=== PATIENT | male | born 1955 | race African-American/Black ===

== ENCOUNTER 2018-12-10 15:05 | Emergency (ER) | payer OTHER ==
[~2018-12-10] VITALS: Ht 180.3 cm; Wt 77.0 kg
[2018-12-10 18:49] LABS: BASOPHILS % 0.5 % (0.0-2.0); EOSINOPHILS % 0.5 % (0.0-5.0); HEMATOCRIT. 48.5 % (42.0-52.0); HEMOGLOBIN. 16.1 g/dL (14.0-18.0); LYMPHOCYTES % 9.8 % (20.0-50.0); MEAN CORPUSCULAR HEMOGLOBIN 32.6 pg (28.0-32.0); MEAN CORPUSCULAR VOLUME 98.5 fL (80.0-94.0); MEAN PLATELET VOLUME 8.6 fl (7.4-10.4); MONOCYTES % 6.3 % (2.0-8.0); NEUTROPHILS % 82.9 % (40.0-76.0); PLATELET 142 x1000/uL (130-400); RED BLOOD CELL COUNT 4.92 mill/uL (4.7-6.1); RED CELL DISTRIBUTION WIDTH 12.5 % (11.6-14.6)
[2018-12-10 18:51] LABS: CHLORIDE 103 mEq/L (98-107)
[2018-12-10 18:53] LABS: PROTHROMBIN TIME 10.3 sec (9.1-11.1)
[2018-12-10] MEDS ORDERED: SODIUM CHLORIDE 0.9% 1,000 ML IV ONE (19:07)
[2018-12-10] MEDS ORDERED: MORPHINE SULFATE 4 MG/ML CPJ (NOT FOR IM USE) IV PRN (23:15)
[2018-12-10] MEDS ORDERED: HYDRALAZINE 20MG/ML VIAL IV PRN (23:15)
[2018-12-10] MEDS ORDERED: IPRATROPIUM/ALBUTEROL 0.5-3(2.5)MG/3ML NEB INH PRN (23:15)
[2018-12-10] MEDS ORDERED: LORAZEPAM 2MG/ML CPJ IV PRN (23:15)
[2018-12-10] MEDS ORDERED: ONDANSETRON HCL 4MG/2ML INJ IV PRN (23:15)
[2018-12-11] MEDS ORDERED: SODIUM CHLORIDE 0.9% 1,000 ML IV SCH
[2018-12-11] MEDS ORDERED: ENOXAPARIN 40MG/0.4ML SYR SUBCUT SCH
[2018-12-11] MEDS: PANTOPRAZOLE SODIUM 40 MG/VIAL IV SCH ×2 (03:43→09:29)
[2018-12-11 04:33] LABS: BASOPHILS % 0.2 % (0.0-2.0); EOSINOPHILS % 0.1 % (0.0-5.0); HEMATOCRIT. 44.8 % (42.0-52.0); HEMOGLOBIN. 14.9 g/dL (14.0-18.0); LYMPHOCYTES % 9.5 % (20.0-50.0); MEAN CORPUSCULAR HEMOGLOBIN 32.5 pg (28.0-32.0); MEAN CORPUSCULAR VOLUME 97.6 fL (80.0-94.0); MEAN PLATELET VOLUME 8.4 fl (7.4-10.4); MONOCYTES % 6.4 % (2.0-8.0); NEUTROPHILS % 83.8 % (40.0-76.0); PLATELET 137 x1000/uL (130-400); RED BLOOD CELL COUNT 4.59 mill/uL (4.7-6.1); RED CELL DISTRIBUTION WIDTH 12.6 % (11.6-14.6)
[2018-12-11 04:39] LABS: CHLORIDE 107 mEq/L (98-107)
[2018-12-11 04:51] LABS: LDL CHOLESTEROL 51 mg/dL (5-100)
[2018-12-11 04:52] LABS: CREATINE KINASE 203 IU/L (39-308)
[2018-12-11 04:54] LABS: CREATINE KINASE MB FRACTION < 1.0 ng/mL (0.5-3.6); HDL CHOLESTEROL 61 mg/dL (40-59)
[2018-12-11] MEDS: ENALAPRIL 2.5MG/2ML VIAL 2ML IV SCH ×2 (07:50)
[2018-12-11 09:10] VITALS: BP 120/85
== END 2018-12-11 10:11 | disposition left against medical advice (07) ==
LOC: ER 15:05 → EDBEDREQ 19:17 → CANBEDREQ 12-11 10:02 → ER 12-11 10:11
DX: K85.90 Acute pancreatitis without necrosis or infection, unspecified (principal); J44.9 Chronic obstructive pulmonary disease, unspecified; I10 Essential (primary) hypertension; F17.200 Nicotine dependence, unspecified, uncomplicated; F11.20 Opioid dependence, uncomplicated; Z98.890 Other specified postprocedural states
CPT/HCPCS: 36415; 76700; 80053; 80061; 80320; 82140; 82550; 82553; 83690; 83735; 84443; 84484; 85025; 85610; 87040; 93970; 96361; 96372; 96374; 99284; C9113; J1650; J7030; G0480

== ENCOUNTER 2020-04-27 06:06 | Emergency (ER) | payer OTHER ==
[~2020-04-27] VITALS: Ht 190.5 cm; Wt 77.0 kg
[2020-04-27 06:09] VITALS: BP 130/89
[2020-04-27] MEDS ORDERED: LIDOCAINE HCL/PF 1% 10 MG/ML 5ML VIAL IJ ONE (06:45)
== END 2020-04-27 07:07 | disposition home or self-care (01) ==
LOC: ER 06:06
DX: L02.415 Cutaneous abscess of right lower limb (principal); I10 Essential (primary) hypertension
CPT/HCPCS: 10060; 99283; J3490

== ENCOUNTER 2022-08-09 04:39 | Emergency (ER) | payer MEDICAID, OTHER ==
[~2022-08-09] VITALS: Ht 190.5 cm; Wt 91.0 kg
[2022-08-09 04:42] VITALS: BP 182/90
[2022-08-09] MEDS ORDERED: ONDANSETRON HCL 4MG/2ML INJ IV STA (08:04)
[2022-08-09] MEDS ORDERED: SODIUM CHLORIDE 0.9% 1,000 ML IV ONE (08:15)
== END 2022-08-09 09:22 | disposition left against medical advice (07) ==
LOC: ER 04:53
DX: Z53.21 Procedure and treatment not carried out due to patient leaving prior to being seen by health care provider (principal)
CPT/HCPCS: J7030

== ENCOUNTER 2023-01-03 13:54 | Emergency (ER) | payer MEDICARE, MEDICAID ==
[~2023-01-03] VITALS: Ht 177.8 cm; Wt 64.0 kg
[2023-01-03] MEDS ORDERED: IBUPROFEN 600MG TABLET PO STA (14:16)
[2023-01-03 14:45] VITALS: BP 154/96
[2023-01-03] MEDS ORDERED: AMLO10TA4 MT (15:39)
[2023-01-03] MEDS ORDERED: IBUP-2029 MT (15:40)
== END 2023-01-03 16:21 | disposition home or self-care (01) ==
LOC: ER 13:54
DX: M79.605 Pain in left leg (principal); M79.604 Pain in right leg; I10 Essential (primary) hypertension; J45.909 Unspecified asthma, uncomplicated
CPT/HCPCS: 93970; 99284

== ENCOUNTER 2023-05-01 08:25 | Emergency (ER) | payer MEDICARE, MEDICAID ==
[~2023-05-01] VITALS: Ht 182.9 cm; Wt 82.0 kg
[~2023-05-01 08:25] MED LIST: AMLO10TA4 MT; IBUP-2029 MT
[2023-05-01 08:28] VITALS: BP 189/123; PULSE 98; RESP 18; TEMP 98.3; O2SAT 100
[2023-05-01 09:15] LABS: BASOPHILS % 0.7 % (0.0-2.0); EOSINOPHILS % 2.4 % (0.0-5.0); HEMATOCRIT. 42.6 % (42.0-52.0); HEMOGLOBIN. 14.1 g/dL (14.0-18.0); LYMPHOCYTES % 29.2 % (20.0-50.0); MEAN CORPUSCULAR HEMOGLOBIN 31.6 pg (28.0-32.0); MEAN CORPUSCULAR HGB CONC 33.2 g/dL (31.0-37.0); MEAN CORPUSCULAR VOLUME 95.2 fL (80.0-94.0); MEAN PLATELET VOLUME 8.1 fl (7.4-10.4); MONOCYTES % 9.4 % (2.0-8.0); NEUTROPHILS % 58.3 % (40.0-76.0); PLATELET 397 x1000/uL (130-400); RED BLOOD CELL COUNT 4.47 mill/uL (4.7-6.1); RED CELL DISTRIBUTION WIDTH 14.5 % (11.6-14.6); WHITE BLOOD COUNT 11.2 x1000/uL (4.5-11.0)
[2023-05-01 09:26] LABS: CALCIUM 9.5 mg/dL (8.5-10.1); CHLORIDE 106 mEq/L (98-107); INDEX HEMOLYSI 1 (1-3); INDEX ICTERIC 1 (1-4); INDEX LIPEMIC 1 (1-3); POTASSIUM 3.8 mEq/L (3.5-5.1); SODIUM 140 mEq/L (136-145); UREA NITROGEN BLOOD 15 mg/dL (7-21)
[2023-05-01 09:35] LABS: ALANINE AMINOTRANSFERASE 29 IU/L (13-61); ASPARTATE AMINOTRANSFERASE 34 IU/L (15-37); BILIRUBIN TOTAL 0.7 mg/dL (0.1-1.0); CARBON DIOXIDE 29 mEq/L (21-32); CREATININE 1.3 mg/dL (0.6-1.3); ETHANOL BLOOD < 10 mg/dL (-10); GLUCOSE 103 mg/dL (70-105); PROTEIN TOTAL 9.6 g/dL (6.0-8.3); PROTHROMBIN TIME 10.6 sec (9.6-11.0); TROPONIN I HIGH SENSITIVITY 5 ng/L (<78)
[2023-05-01] MEDS ORDERED: CEFTRIAXONE 1GM PREMIX 50 ML IV ONE (10:30)
[2023-05-01] MEDS ORDERED: AZITHROMYCIN 500MG/250ML 250 ML IV ONE (10:30)
[2023-05-01] MEDS ORDERED: LEVO-65 PO (11:44)
== END 2023-05-01 12:05 | disposition home or self-care (01) ==
LOC: ER 08:25 → EDBEDREQTM 11:14 → EDBEDREQ 11:14 → ER 12:05 → CANBEDREQ 05-02 00:01
DX: J18.9 Pneumonia, unspecified organism (principal); J44.9 Chronic obstructive pulmonary disease, unspecified; I10 Essential (primary) hypertension; F15.10 Other stimulant abuse, uncomplicated
CPT/HCPCS: 36415; 71045; 80053; 80320; 83605; 84145; 84484; 85025; 93005; 99285; G0480

== ENCOUNTER 2023-10-17 12:20 | Emergency (ER) | payer MEDICARE, MEDICAID ==
[~2023-10-17] VITALS: Ht 182.9 cm; Wt 85.0 kg
[~2023-10-17 12:20] MED LIST changes: +LEVO-65 PO
[2023-10-17 12:54] VITALS: BP 176/106; PULSE 98; RESP 16; TEMP 98.5; O2SAT 97
[2023-10-17 15:03] LABS: BASOPHILS % 0.8 % (0.0-2.0); EOSINOPHILS % 1.5 % (0.0-5.0); HEMATOCRIT. 41.1 % (42.0-52.0); HEMOGLOBIN. 13.6 g/dL (14.0-18.0); LYMPHOCYTES % 28.4 % (20.0-50.0); MEAN CORPUSCULAR HEMOGLOBIN 31.6 pg (28.0-32.0); MEAN CORPUSCULAR VOLUME 95.7 fL (80.0-94.0); MEAN PLATELET VOLUME 9.9 fl (7.4-10.4); MONOCYTES % 12.6 % (2.0-8.0); NEUTROPHILS % 56.7 % (40.0-76.0); PLATELET 222 x1000/uL (130-400); RED CELL DISTRIBUTION WIDTH 13.8 % (11.6-14.6); WHITE BLOOD COUNT 12.5 x1000/uL (4.5-11.0)
[2023-10-17 15:06] LABS: ALANINE AMINOTRANSFERASE 14 IU/L (10-49); ALBUMIN 4.1 g/dL (3.2-4.8); ASPARTATE AMINOTRANSFERASE 20 IU/L (<34); BILIRUBIN TOTAL 0.4 mg/dL (0.1-1.0); CALCIUM 9.3 mg/dL (8.7-10.4); CARBON DIOXIDE 29 mEq/L (21-32); CHLORIDE 106 mEq/L (98-107); CREATININE 0.9 mg/dL (0.6-1.3); GLUCOSE 82 mg/dL (70-105); POTASSIUM 3.7 mEq/L (3.5-5.1); PROTEIN TOTAL 8.2 g/dL (6.0-8.3); SODIUM 140 mEq/L (136-145); UREA NITROGEN BLOOD 10 mg/dL (9-23)
== END 2023-10-17 21:54 | disposition left against medical advice (07) ==
LOC: ER 12:20
DX: R22.42 Localized swelling, mass and lump, left lower limb (principal); I49.9 Cardiac arrhythmia, unspecified; Z53.21 Procedure and treatment not carried out due to patient leaving prior to being seen by health care provider
CPT/HCPCS: 36415; 80053; 85025; 93005; 99281